=== PATIENT | male | born 1955 | race Caucasian/White ===

== ENCOUNTER → 2021-03-28 | Outpatient (CLI) | payer MEDICARE ==
--- NOTE | 2021-03-28 09:51 | Diagnostic Imaging Report ---
INDICATION: Left leg pain, prior history of DVT. Left leg venous Doppler study was performed in the routine fashion with color flow Doppler and waveform analysis. FINDINGS: The left common femoral vein, superficial femoral vein, popliteal vein and visualized portion of the posterior tibial vein show normal compressibility and venous flow patterns. There is normal augmentation. IMPRESSION: No evidence of deep vein thrombosis of the major veins of the left leg. Dictated by: Dictated on workstation # [id number]
== END ==
LOC: RAD 09:45
PROVIDERS: ATTEND Pediatrics
DX: M79.662 Pain in left lower leg (principal); Z86.718 Personal history of other venous thrombosis and embolism

== ENCOUNTER 2022-11-19 12:23 | Emergency (ER) | payer MEDICARE ==
[~2022-11-19] VITALS: Ht 172 cm; Wt 97.0 kg
[2022-11-19 12:30] VITALS: BP 117/85
[2022-11-19] MEDS ORDERED: ORPHENADRINE 60 MG/2 ML AMP (ED ONLY) IM ONE (13:00)
[2022-11-19] MEDS ORDERED: KETOROLAC INJ 30 MG/ML VIAL IM ONE (13:00)
[2022-11-19] MEDS ORDERED: HYDROcodone/ACETAMINOPHEN 5 MG/325 MG TABLET PO ONE (13:00)
--- NOTE | 2022-11-19 13:01 | ED Lower Extremity ---
General Chief Complaint: Lower Extremity Stated Complaint: RIGHT SIDE SCIATICA Nursing Triage Note: ARRIVED VIA AMB TO ROOM 08 WITH COMPLAINTS OF SCIATICA ON RIGHT SIDE. Source: patient Exam Limitations: no limitations History of Present Illness Date Seen by Provider: Nov 19, 2022 Time Seen by Provider: 12:58 Initial Comments Patient is a 67-year-old male who presents to the ED with right lower back pain and right leg pain. Pain started about a week ago. [place] a twinge in his right buttock right lower back. This pain is described as sharp and radiates down to the right knee. Also reports numbness and tingling sensation. Worse when he gets up or any change in movement. Patient has been laying on his left side to help improve the pain. Patient denies of any specific injury. Known history of DVT in left leg currently on Eliquis. Denies any swelling or bruising to the right lower extremity. Denies of any bowel or urine incontinence or saddle paresthesia. Denies of any right leg weakness. Concern for sciatica. Patient went to the clinic this past week was given a dose of pain medication baclofen and denies of any improvement. History of a previous trucking manager. Denies fever, chills, chest pain, cough, shortness of breath, headache, dizziness, bowel or urine incontinence or saddle paresthesia Allergies and Home Medications Allergies Coded Allergies: Penicillins (Verified Allergy, Severe, RASH, 11/19/22) Patient Home Medication List Home Medication List Reviewed: Yes Hydrocodone/Acetaminophen (Hydrocodone-Acetamin 5-325 mg) 5 Mg-325 Mg Tablet, 1 TAB PO Q4H PRN for PAIN-MODERATE (5-7) Prescribed by: JAVON MARTINES on 11/19/22 1337 Methocarbamol (Methocarbamol) 750 Mg Tablet, 750 MG PO Q6-8HR Prescribed by: JAVON MARTINES on 11/19/22 1337 Review of Systems Constitutional: No chills, No diaphoresis EENTM: No ear discharge, No hearing loss, No ear pain Respiratory: No dyspnea on exertion Gastrointestinal: No abdominal pain, No nausea Genitourinary: No discharge Musculoskeletal: back pain; No joint pain, No joint swelling; muscle pain Skin: No change in color, No change in hair/nails All Other Systems Reviewed Negative Unless Noted: Yes Past Xtcsyso-Obditp-Pwxrzl Hx Patient Social History Tobacco Use?: No Substance use?: No Alcohol Use?: Yes Alcohol Frequency: Once in a while Physical Exam Vital Signs Vital Signs - First Documented 11/19/22 12:30 Temp 36.5 Pulse 77 Resp 16 B/P (MAP) 117/85 (96) Pulse Ox 98 O2 Delivery Room Air Capillary Refill : Less Than 3 Seconds Height, Weight, BMI Height: '" Weight: lbs. oz. kg; 32.00 BMI Method: General Appearance: WD/WN, no apparent distress HEENT: PERRL/EOMI, normal ENT inspection, TMs normal, pharynx normal Neck: non-tender, full range of motion, supple, normal inspection Cardiovascular: regular rate, rhythm, no edema, no gallop, no JVD Respiratory: chest non-tender, lungs clear, normal breath sounds, no respiratory distress, no accessory muscle use Gastrointestinal: normal bowel sounds, non tender, soft, no organomegaly Back: other (Right lower lumbar midline tenderness, right buttock tenderness. 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, no motor/sensory deficits, alert, normal mood/affect, oriented x 3 Progress/Results/Core Measures Results/Orders My Orders Orders - ISMAEL RUIZ Ct Lumbar Spine Wo (11/19/22 12:56) Ketorolac Injection (Ketorolac Injection (11/19/22 13:00) Orphenadrine Inj (Ed Only) (Orphenadrine (11/19/22 13:00) Hydrocodone/Apap 5/325 Tablet (Hydrocod (11/19/22 13:00) Medications Given in ED Current Medications Medications Dose Ordered Sig/Lucinda Route Start Time Stop Time Status Last Admin Dose Admin Acetaminophen/ Hydrocodone Bitart 1 ea ONCE ONCE PO 11/19/22 13:00 11/19/22 13:01 DC 11/19/22 13:11 1 EA Ketorolac Tromethamine 30 mg ONCE ONCE IM 11/19/22 13:00 11/19/22 13:01 DC 11/19/22 13:12 30 MG Orphenadrine Citrate 60 mg ONCE ONCE IM 11/19/22 13:00 11/19/22 13:01 DC 11/19/22 13:11 60 MG Vital Signs/I&O 11/19/22 12:30 Temp 36.5 Pulse 77 Resp 16 B/P (MAP) 117/85 (96) Pulse Ox 98 O2 Delivery Room Air Blood Pressure Mean: 96 Departure Communication (PCP) Patient presents the ED with pain in his lower back with a sharp shooting pain down to his right knee. Pain to the thigh. No specific injury. History of similar type pain in the past but denies the numbness and tingling sensation. Afebrile. No urinary symptoms. No abdominal pain. No neurological red flag findings such as bowel or urine incontinence or saddle paresthesia. Currently taking baclofen was seen at the clinic. 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 There is no swelling bruising or redness to the right lower extremity suggesting DVT. Pain does not radiate up to the right leg. Abbe salis pedis +2. Warm extremity. Cap refill less than 2. Does not appear vascular. Patient does have some lumbar midline tenderness right lumbar paraspinal muscle tenderness. Positive straight leg raise. Concern for sciatica. Discussed with patient imaging limiting with x-ray or even CT scan. He would like to proceed with a CT scan which could show potential bulging disc which I am concerned of versus spinal stenosis versus degenerative disc disease. CT scan of the lumbar spine shows moderate L4-L5 facet arthropathy. There is L4-L5 and L3-L4 degenerative disc disease. There is moderate L3-L4 and L4-L5 spinal canal stenosis. Discussed these results with patien. Patient received IM Toradol, Norflex and a dose of hydrocodone with some improvement of pain. Patient states he is feeling somewhat better. Recommend avoiding any strenuous lifting. Recommend stretching, heat. Recommend follow-up your primary care physician for further evaluation. May need further evaluation with MRI. May benefit with epidurals if warranted. Return precaution were discussed. Impression Primary Impression: Sciatica Disposition: HOME, SELF-CARE Condition: Stable Departure-Patient Inst. Decision time for Depature: 13:35 Referrals: SHAHEEN CHAMBERLAIN DO (PCP) Primary Care Physician Patient Instructions: Sciatica ED Add. Discharge Instructions: Recommend follow-up your primary care physician for further evaluation. Recommend heat, stretching and avoid any strenuous activity. Continue with your baclofen. Add a hydrocodone and Robaxin a muscle relaxer. Do not drive with medication. All discharge instructions reviewed with patient and/or family. Voiced understanding. Scripts Methocarbamol (Methocarbamol) 750 Mg Tablet 750 MG PO Q6-8HR for Back Pain, #20 TAB Prov: ISMAEL RUIZ 11/19/22 Hydrocodone/Acetaminophen (Hydrocodone-Acetamin 5-325 mg) 5 Mg-325 Mg Tablet 1 TAB PO Q4H PRN for PAIN-MODERATE (5-7), #8 TAB Prov: ISMAEL RUIZ 11/19/22 ISMAEL RUIZ Nov 19, 2022 13:01
[2022-11-19] MEDS ORDERED: METH-732 PO (13:37)
[2022-11-19] MEDS ORDERED: ACHD5005 PO (13:37)
--- NOTE | 2022-11-19 13:39 | Diagnostic Imaging Report ---
EXAMINATION: CT lumbar spine without contrast. TECHNIQUE: Multiple contiguous axial images were obtained through the lumbar spine without the use of intravenous contrast. Sagittal and coronal reformations were then performed. All CT scans use one or more of the following dose optimizing techniques: automated exposure control, MA and/or KvP adjustment based on patient size and exam type or iterative reconstruction. HISTORY: Back injury COMPARISON: None available. FINDINGS: The alignment of the lumbar spine is normal. Vertebral body heights are normal and no fracture is seen. There is moderate L4-L5 facet arthropathy. There is L4-L5 and L3-L4 degenerative disc disease. There is moderate L3-L4 and L4-L5 spinal canal stenosis. Limited views of the abdomen and pelvis show no soft tissue abnormality. The aorta is normal. IMPRESSION: 1. No lumbar spine fracture. Dictated by: Dictated on workstation # [id number]
== END 2022-11-19 13:51 | disposition home or self-care (01) ==
LOC: EDUNIT# 12:23 → ER 12:25
DX: M54.41 Lumbago with sciatica, right side (principal); Z86.718 Personal history of other venous thrombosis and embolism; Z79.01 Long term (current) use of anticoagulants
CPT/HCPCS: 72131

== ENCOUNTER → 2022-12-04 | Outpatient (CLI) | payer MEDICARE ==
[~2022-12-04] MED LIST: ACHD5005 PO; METH-732 PO
--- NOTE | 2022-12-04 11:18 | Diagnostic Imaging Report ---
PROCEDURE: MRI lumbar spine. TECHNIQUE: Multiplanar, multisequence MRI of the lumbar spine was performed without contrast. INDICATION: Chronic low back pain. COMPARISON: None FINDINGS: AP static alignment of the lumbar spine is maintained. There is no significant anteroretrolisthesis. There is no evidence of jumped facets. Mild levoscoliotic deformity is noted. Vertebral body heights are preserved. There is no acute fracture. Evaluation marrow signal demonstrates Modic type changes, greatest at the L3-L4 level on the right. There is also multilevel intervertebral disc height loss with multilevel anterior posterior disc osteophyte complex formations. Visualized portions of distal cord are unremarkable. Conus terminates at approximately the L1 level. No abnormal intrathecal filling defects are seen. Pre and paravertebral soft tissue structures are unremarkable. Axial images demonstrate the following: T12-L1: There is no large disc bulge or focal protrusion. There is no significant spinal canal or neuroforaminal stenosis. L1-L2: There is broad-based posterior disc bulge and bilateral ligamentum flavum laxity and facet arthropathy. As a result, there is mild stenosis of the spinal canal and bilateral neural foramen. L2-L3: There is broad-based posterior disc bulge with probable extrusion of disc material on the right. Disc material extends inferiorly into the anterior epidural space posterior to the L3 vertebral body. This likely results in significant mass effect on the exiting right L3 nerve root. There is also moderate stenosis of the spinal canal and mild narrowing of bilateral neural foramen. L3-L4: There is broad-based posterior disc bulge, eccentric to the right. There is also bilateral ligamentum flavum laxity and facet arthropathy. As a result, there is mild to moderate stenosis spinal canal. There is also moderate stenosis of the right neuroforamen and mild narrowing on the left. L4-L5: There is small central posterior disc protrusion with bilateral ligamentum flavum laxity and facet arthropathy. As a result, there is moderate narrowing of the spinal canal and mild narrowing of bilateral neural foramen. L5-S1: There is broad-based posterior disc bulge with primarily lateral endplate osteophyte formations. There is also bilateral facet arthropathy. As a result, there is mild narrowing spinal canal and bilateral neural foramen. IMPRESSION: 1. Multilevel degenerative changes of the lumbar spine greatest at the L2-L3 level where there is likely significant mass effect on the exiting right L3 nerve root. 2. No acute fracture or dislocation. Dictated by: Dictated on workstation # [id number]
== END ==
LOC: RAD 08:00
PROVIDERS: ATTEND Pediatrics
DX: M47.816 Spondylosis without myelopathy or radiculopathy, lumbar region (principal)
CPT/HCPCS: 72148